=== PATIENT | female | born 1995 | race Caucasian/White ===

== ENCOUNTER 2017-07-12 15:37 | Emergency (ER) | payer OTHER ==
[~2017-07-12] VITALS: Ht 157.5 cm; Wt 52.5 kg
[2017-07-12 16:22] VITALS: Ht 157.5 cm; Wt 52.5 kg
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
[2017-07-12] MEDS ORDERED: ACET500C5 PO (21:17)
[2017-07-12] MEDS ORDERED: BACL10TA PO (21:18)
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
== END 2017-07-12 21:29 | disposition home or self-care (01) ==
LOC: FTE 15:37
DX: M54.2 Cervicalgia (principal); M54.9 Dorsalgia, unspecified; V49.40XA Driver injured in collision with unspecified motor vehicles in traffic accident, initial encounter
CPT/HCPCS: 72040; 72100; Z7502